=== PATIENT | female | born 1945 | race Caucasian/White ===

== ENCOUNTER 2016-09-05 15:52 | Inpatient (IN) | payer OTHER ==
[~2016-09-05] VITALS: Ht 154.9 cm; Wt 105.6 kg
[2016-09-05] VITALS (13 sets, daily range): BP systolic 116–148; RESP 19–30; TEMP 97.5; Ht 154.9 cm; Wt 105.6 kg
[2016-09-05] MEDS ORDERED: DUONEB INH ONE ×3 (17:06)
[2016-09-05] MEDS ORDERED: PIPER/TAZO 3.375 GM PYXIS ONE (18:34)
[2016-09-05] MEDS ORDERED: AZITHROMYCIN 500 MG VIAL IV ONE (18:34)
[2016-09-05] MEDS ORDERED: SODIUM CHLORIDE 0.9% 250 ML IV ONE (18:36)
[2016-09-05] MEDS ORDERED: SODIUM CHLORIDE 0.9% 100 ML IV ONE (18:36)
[2016-09-05] MEDS: NEB-ATROVENT INH SCH ×2 (19:10→23:14)
[2016-09-05] MEDS ORDERED: SALINE FLUSH 10 ML FLUSH PRN (19:10)
[2016-09-05] MEDS ORDERED: NEB-ALBUTEROL 2.5 MG/3 ML INH PRN (19:10)
[2016-09-05] MEDS: ENOXAPARIN 40 MG/0.4 ML SYR SUBQ SCH (21:19)
[2016-09-05] MEDS: METHYLPRED SOD SUCC 125 MG/2 ML VIAL IV SCH (21:20)
[2016-09-05] MEDS: SALINE FLUSH 10 ML FLUSH SCH (21:20)
[2016-09-05] MEDS ORDERED: LEVOFLOXACIN 750 MG/150 ML 150 ML IV SCH (21:40)
[2016-09-05] MEDS ORDERED: Furosemide 100 MG/10 ML VIAL IV ONE (22:40)
[2016-09-06] VITALS (23 sets, daily range): BP systolic 114–146; RESP 16–29; TEMP 97.2–98.4
[2016-09-06] MEDS: NEB-ATROVENT INH SCH (06:10)
[2016-09-06] MEDS: SODIUM CHLORIDE 0.9% FLUSH BAG 500 ML IV SCH (06:50)
[2016-09-06] MEDS: SALINE FLUSH 10 ML FLUSH SCH ×2 (08:49→20:13)
[2016-09-06] MEDS: METHYLPRED SOD SUCC 125 MG/2 ML VIAL IV SCH ×2 (08:49→20:13)
[2016-09-06] MEDS: ENOXAPARIN 40 MG/0.4 ML SYR SUBQ SCH (08:49)
[2016-09-06] MEDS: METOPROLOL XL 50 MG TAB PO SCH (09:19)
[2016-09-06] MEDS ORDERED: BUMETANIDE 1 MG TAB PO SCH (09:19)
[2016-09-06] MEDS: DUONEB INH SCH ×4 (10:52→22:16)
[2016-09-06] MEDS: NEB-BROVANA 15 MCG/2 ML INH SCH ×2 (11:00→19:06)
[2016-09-06] MEDS: AZITHROMYCIN 500 MG in SODIUM CHLORIDE 0.9% 250 ML IV SCH (11:50)
[2016-09-06] MEDS: CEFTRIAXONE 1 GM in SODIUM CHLORIDE 0.9% 50 ML IV SCH (11:50)
[2016-09-06] MEDS: BUMETANIDE 1 MG/4 ML VIAL IV SCH ×2 (11:50→18:27)
[2016-09-06] MEDS: Meclizine HCl 25 MG TAB PO SCH (20:13)
[2016-09-07 00:13] VITALS: BP_SYST 144; RESP 18; TEMP 98.4
[2016-09-07] MEDS: DUONEB INH SCH ×6 (03:03→23:20)
[2016-09-07] MEDS: ACETAMINOPHEN 325 MG TAB PO PRN ×2 (03:14→10:51)
[2016-09-07 03:30] VITALS: BP_SYST 131; RESP 18; TEMP 97.6
[2016-09-07] MEDS: SODIUM CHLORIDE 0.9% FLUSH BAG 500 ML IV SCH (05:35)
[2016-09-07] MEDS: NEB-BROVANA 15 MCG/2 ML INH SCH ×2 (06:22→19:53)
[2016-09-07 08:10] VITALS: BP_SYST 136; RESP 18; TEMP 97.6
[2016-09-07] MEDS: SALINE FLUSH 10 ML FLUSH SCH ×2 (08:57→20:20)
[2016-09-07] MEDS: BUMETANIDE 1 MG/4 ML VIAL IV SCH ×2 (08:58→17:14)
[2016-09-07] MEDS: METHYLPRED SOD SUCC 125 MG/2 ML VIAL IV SCH ×2 (08:58→20:19)
[2016-09-07] MEDS: METOPROLOL XL 50 MG TAB PO SCH (08:59)
[2016-09-07] MEDS: CEFTRIAXONE 1 GM in SODIUM CHLORIDE 0.9% 50 ML IV SCH (08:59)
[2016-09-07] MEDS: Meclizine HCl 25 MG TAB PO SCH ×2 (08:59→20:19)
[2016-09-07] MEDS: ENOXAPARIN 40 MG/0.4 ML SYR SUBQ SCH (09:17)
[2016-09-07] MEDS: AZITHROMYCIN 500 MG in SODIUM CHLORIDE 0.9% 250 ML IV SCH (09:54)
[2016-09-07] MEDS: LORAZEPAM 0.5 MG TAB PO PRN ×2 (10:47→20:19)
[2016-09-07 11:45] VITALS: BP_SYST 132; RESP 18; TEMP 97.8
[2016-09-07] MEDS: ONDANSETRON 4 MG VIAL IV PRN (13:24)
[2016-09-07 16:50] VITALS: BP_SYST 132; RESP 20; TEMP 97.9
[2016-09-07] MEDS: POLYETHYLENE GLYCOL 17 GM PACKET PO PRN (17:28)
[2016-09-07 20:00] VITALS: BP_SYST 139; RESP 18; TEMP 97.5
[2016-09-08] VITALS (8 sets, daily range): BP systolic 112–154; RESP 18–22; TEMP 97–98.1
[2016-09-08] MEDS: SODIUM CHLORIDE 0.9% FLUSH BAG 500 ML IV SCH ×2 (04:56→22:03)
[2016-09-08] MEDS: NEB-BROVANA 15 MCG/2 ML INH SCH ×2 (06:20→18:43)
[2016-09-08] MEDS: DUONEB INH SCH ×5 (06:20→22:23)
[2016-09-08] MEDS: CEFTRIAXONE 1 GM in SODIUM CHLORIDE 0.9% 50 ML IV SCH (09:25)
[2016-09-08] MEDS: SALINE FLUSH 10 ML FLUSH SCH ×2 (09:25→20:00)
[2016-09-08] MEDS: BUMETANIDE 1 MG/4 ML VIAL IV SCH (09:36)
[2016-09-08] MEDS: METOPROLOL XL 50 MG TAB PO SCH (09:36)
[2016-09-08] MEDS: Meclizine HCl 25 MG TAB PO SCH ×2 (09:36→21:55)
[2016-09-08] MEDS: ENOXAPARIN 40 MG/0.4 ML SYR SUBQ SCH (09:55)
[2016-09-08] MEDS: ONDANSETRON 4 MG VIAL IV PRN (09:59)
[2016-09-08] MEDS: AZITHROMYCIN 500 MG in SODIUM CHLORIDE 0.9% 250 ML IV SCH (10:45)
[2016-09-08] MEDS: METHYLPRED SOD SUCC 125 MG/2 ML VIAL IV SCH (10:51)
[2016-09-08] MEDS: PREDNISONE 50 MG TAB PO SCH (12:48)
[2016-09-08] MEDS: BUMETANIDE 1 MG TAB PO SCH (17:28)
[2016-09-08] MEDS: Amoxicillin Tr 500 MG CAP PO SCH ×2 (17:28→21:59)
[2016-09-08] MEDS ORDERED: FAMOTIDINE 20 MG TAB PO SCH (21:00)
[2016-09-08] MEDS: SACCHA BOULARDII 250MG CAP PO SCH (21:54)
[2016-09-08] MEDS: LORAZEPAM 0.5 MG TAB PO PRN (21:59)
[2016-09-09] VITALS (7 sets, daily range): BP systolic 131–153; RESP 18–22; TEMP 97–98
[2016-09-09] MEDS: DUONEB INH SCH ×3 (06:11→14:04)
[2016-09-09] MEDS: NEB-BROVANA 15 MCG/2 ML INH SCH (06:11)
[2016-09-09] MEDS: SALINE FLUSH 10 ML FLUSH SCH (08:00)
[2016-09-09] MEDS: POLYETHYLENE GLYCOL 17 GM PACKET PO PRN (08:21)
[2016-09-09] MEDS: METOPROLOL XL 50 MG TAB PO SCH (08:21)
[2016-09-09] MEDS: PREDNISONE 50 MG TAB PO SCH (08:21)
[2016-09-09] MEDS: LORAZEPAM 0.5 MG TAB PO PRN (08:21)
[2016-09-09] MEDS: SACCHA BOULARDII 250MG CAP PO SCH (08:21)
[2016-09-09] MEDS: Meclizine HCl 25 MG TAB PO SCH (08:22)
[2016-09-09] MEDS: BUMETANIDE 1 MG TAB PO SCH (08:22)
[2016-09-09] MEDS: Amoxicillin Tr 500 MG CAP PO SCH ×2 (08:22→15:27)
[2016-09-09] MEDS: ENOXAPARIN 40 MG/0.4 ML SYR SUBQ SCH (08:23)
[2016-09-09] MEDS ORDERED: AZITHROMYCIN 250 MG TAB PO SCH (09:00)
== END 2016-09-09 16:20 | DRG 291 ==
LOC: ER 15:52 → ENPENDDIS 17:56 → EMR 17:56 → DELPENDDIS 17:56 → CCU 20:34 → PCU 09-06 11:23
PROVIDERS: ADMIT Family Medicine; ATTEND Family Medicine
DX: I11.0 Hypertensive heart disease with heart failure (principal); J96.22 Acute and chronic respiratory failure with hypercapnia; J96.21 Acute and chronic respiratory failure with hypoxia; G93.41 Metabolic encephalopathy; J18.9 Pneumonia, unspecified organism; J44.1 Chronic obstructive pulmonary disease with (acute) exacerbation; Z68.41 Body mass index [BMI] 40.0-44.9, adult; I50.33 Acute on chronic diastolic (congestive) heart failure; E66.01 Morbid (severe) obesity due to excess calories; Z71.3 Dietary counseling and surveillance; F41.9 Anxiety disorder, unspecified; M19.90 Unspecified osteoarthritis, unspecified site; Z87.891 Personal history of nicotine dependence; Z99.81 Dependence on supplemental oxygen; K59.00 Constipation, unspecified; Z66 Do not resuscitate
CPT/HCPCS: 36415; 36600; 71010; 80048; 80053; 81003; 82140; 82553; 82803; 83605; 83880; 84484; 85025; 87040; 93005; 94640; 94660; 94799; 96365; 96367; 96368; 99223; 99232; 99233; 99239; 99291